=== PATIENT | male | born 1945 | race Caucasian/White ===

== ENCOUNTER → 2024-03-23 14:38 | Outpatient (REF) | payer MEDICARE, OTHER, SELFPAY | LOC: HWRCS 14:38 | PROVIDERS: ATTENDING PHYSICIAN Internal Medicine Cardiovascular Disease; FAMILY PHYSICIAN Internal Medicine | DX: I42.9 Cardiomyopathy, unspecified (principal) | CPT/HCPCS: 93306 ==

== ENCOUNTER 2024-08-21 09:47 | Day surgery (SDC) | payer MEDICARE, OTHER, SELFPAY ==
--- NOTE | 2024-08-21 10:40 | ITS.CL.CARDI ---
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
Cardioversion
Procedure Report:
Date of Procedure: 08/21/24
Procedure: Cardioversion
Indication: Symptomatic atrial fibrillation
Performing Physician: Nito Jordan MD
Technique: The patient was brought to the holding area. Signed informed consent was obtained. A time out was called and performed. The patient was anesthetized by the anesthesia service. Anticoagulation status was reviewed and appropriate. R2 pads
were placed anteriorly and posteriorly. A 200 J synchronized biphasic shock restored normal sinus rhythm without significant bradycardia. There were no complications.
Conclusion: Uncomplicated cardioversion from atrial fibrillation to sinus rhythm.
Recommendation: Routine post cardioversion care. 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
== END 2024-08-21 10:15 | disposition home or self-care (01) ==
LOC: CATH 09:47
PROVIDERS: ATTENDING PHYSICIAN Internal Medicine Cardiovascular Disease; FAMILY PHYSICIAN Internal Medicine; OTHER PHYSICIAN Internal Medicine Cardiovascular Disease
DX: I48.0 Paroxysmal atrial fibrillation (principal); I42.9 Cardiomyopathy, unspecified; R55 Syncope and collapse; I47.20 Ventricular tachycardia, unspecified; Z79.01 Long term (current) use of anticoagulants; G47.33 Obstructive sleep apnea (adult) (pediatric)
CPT/HCPCS: 92960; 93005

== ENCOUNTER → 2025-01-01 07:03 | Outpatient (REF) | payer MEDICARE, OTHER, SELFPAY | LOC: MRI 07:03 | PROVIDERS: ATTENDING PHYSICIAN Pain Medicine Interventional Pain Medicine; FAMILY PHYSICIAN Internal Medicine | DX: M54.12 Radiculopathy, cervical region (principal) | CPT/HCPCS: 72141 ==

== ENCOUNTER → 2025-01-21 09:51 | Outpatient (REF) | payer MEDICARE, OTHER, SELFPAY ==
[2025-01-21 10:17] LABS: Hematocrit 35.2 % (39.0-52.0); Hemoglobin 12.4 g/dL (13.0-18.0); Mean Corp Hgb Conc. 35.2 g/dL (33.0-37.0); Mean Corpuscular Volume 102.9 fL (80.0-94.0); Nucleated Red Blood Cells % 0 % (-); Platelet Count 179 10^3/uL (130-400); Red Cell Dist. Width 14.3 % (11.5-14.5)
[2025-01-21 10:37] LABS: INR 1.09; PT 14.6 Sec (11.4-14.6)
[2025-01-21 12:38] LABS: ALT (SGPT) 15 U/L (0-50); AST (SGOT) 17 U/L (17-59); Albumin 4.2 g/dl (3.5-5.0); Alkaline Phosphatase 44 U/L (38-126); Blood Urea Nitrogen 14 mg/dl (9-20); Calcium 9.2 mg/dl (8.4-10.2); Carbon Dioxide 27 mmol/L (22-30); Chloride 107 mmol/L (98-107); Glucose 108 mg/dl (70-99); Magnesium 2.0 mg/dl (1.6-2.3); Potassium 4.5 mmol/L (3.5-5.1); Sodium 139 mmol/L (135-145); Total Protein 6.4 g/dl (6.3-8.2); eGFR > 60.00
== END ==
LOC: SDSPAT 09:51
PROVIDERS: ATTENDING PHYSICIAN Internal Medicine Cardiovascular Disease; FAMILY PHYSICIAN Internal Medicine
DX: I48.0 Paroxysmal atrial fibrillation (principal)
CPT/HCPCS: 36415; 75572; 80053; 83735; 85025; 85610; 86850; 86900; 86901; 93005; Q9967

== ENCOUNTER 2025-02-11 06:56 | Day surgery (SDC) | payer MEDICARE, OTHER, SELFPAY | END 2025-02-11 08:40 | disposition home or self-care (01) | LOC: CATH 06:56 | PROVIDERS: ATTENDING PHYSICIAN Internal Medicine Cardiovascular Disease; FAMILY PHYSICIAN Internal Medicine | DX: I48.0 Paroxysmal atrial fibrillation (principal); I08.3 Combined rheumatic disorders of mitral, aortic and tricuspid valves; I08.8 Other rheumatic multiple valve diseases; I47.20 Ventricular tachycardia, unspecified; R55 Syncope and collapse; I42.9 Cardiomyopathy, unspecified; Z79.01 Long term (current) use of anticoagulants | CPT/HCPCS: 93312; 93320; 93325 ==

== ENCOUNTER 2025-02-16 07:54 | Day surgery (SDC) | payer MEDICARE, OTHER, SELFPAY ==
[2025-01-21 10:29] VITALS: BMI 29.1
[2025-02-16] VITALS (12 sets, daily range): BP systolic 105–132; BP diastolic 65–90
[2025-02-16] MEDS: NSS 500 IV (09:16)
--- NOTE | 2025-02-16 14:02 | ITS.CL.ABL ---
Communications Clerk - Ablation
Ablation
Procedure Report:
ELECTROPHYSIOLOGY ABLATION STUDY
DATE:: February 16, 2025�����������������������������REFERRING: Dr. Nito Jordan
INDICATION: Persistent supraventricular tachycardia in the form of atrial fibrillation.��As above
HISTORY: See H and P.��As above
ANTIARRHYTHMIC DRUG: Carvedilol
PRE-PROCEDURE DIANE: No intracardiac thrombus on intracardiac ultrasound
PRESENTING RHYTHM: Atrial fibrillation
'TIME-OUT':��called and confirmed.
SEDATION/ANESTHESIA:��provided via the anesthesia department using general anesthesia (LMA).
INTRAVENOUS/ARTERIAL ACCESS:
Right femoral venous - 8Fr
Left femoral venous - 8 Fr, 6 Fr
[id number] suture bilaterally
Ultrasound guidance for bilateral femoral vein access was utilized by me to obtain access with demonstration of normal anatomy
CHADS-VASC Score:
HAS-Bled Score
PROCEDURE:
1.��A decapolar CS catheter was placed within the CS for mapping and pacing.��This was also used as the reference catheter for the 3-D map.
2. The intracardiac ultrasound catheter was positioned in the RA to identify the FO for targeting of transseptal puncture, assist��in identification of the pulmonary vein ostia, monitoring pre and post ablation pulmonary vein flow velocities,
monitoring for 'bubble' formation during RF application as a sign of thermal injury,��and to monitor for pericardial effusion during mapping and ablation procedure.���Left atrial size, LV ejection fraction, and pulmonary vein flows were monitored
pre and post ablation procedure. The other valves were inspected and found to be free of significant regurgitation or stenosis. Patient was noted to have mild mitral digitation under anesthesia. Recent transesophageal echo demonstrating moderate
mitral regurgitation when in atrial fibrillation
3.��Half of the calculated heparin bolus was administered prior to the first transeptal puncture.��Transseptal puncture was performed to diagnose RA and LA pressure so that safety of LA mapping and ablation could be further assessed, and to access
the left atrium and pulmonary veins for mapping and ablation.��This entailed advancing an 8 Fr SL-1 sheath with dilator into the superior vena cava and withdrawing both (monitoring intracardiac ultrasound, fluoroscopy and tip pressure) with the tip
oriented toward the atrial septum.��The fossa ovalis was engaged (indicated by sudden displacement of the sheath tip as well as tenting of the fossa seen on intracardiac ultrasound).��Left atrial access required a pass with the Brockenbrough needle
extended.��Left atrial catheter position was confirmed by pressure monitoring (RA mean pressure 4 mm Hg and LA mean pressure 8 mm Hg in atrial fibrillation 18 in sinus rhythm with the patient receiving 1300 cc of fluid), LA saturation (99%),��as
well as fluoroscopy.��The sheath was advanced over the dilator and positioned in the left atrium.��This procedure was repeated for the Agilis sheath.��The remainder of the calculated heparin bolus was administered and heparin was
infused to maintain ACT at 300 -350 seconds throughout the case.
4.��RA pacing was performed via the proximal decapolar poles and LA pacing was performed via the distal decapolar poles.
5. A quadrapolar catheter was first positioned at the His position for His Bundle recording which was tagged via the 3-D Navex sytem, and then passed to the RVA for RV pacing and recording.
6. The Penta spline and grid catheter were placed in each of the LIPV, LSPV, RSPV and the RIPV.��
7.��Next, a 3-D map was created using Navex.���A 3-D reconstructed CT image was compared to the 3-D Navex map to assist in anatomic interpretation, mapping and ablation.��The CT image and the NavX image were fused.
8. A total of 52 lesions were given to the pulmonary veins and posterior wall left atrium. All of in basket poses were given to the left common ostium with care taken to address the distal emmett of the left common ostium in all of pose as well as
basket pose in the common ostium in a segmental fashion. The right pulmonary veins were addressed individually. This led to entrance block in all 4 pulmonary veins. Atrial fibrillation persisted and in flower pose roof posterior wall and floor of
the left atrium rendered the posterior wall of the left atrium electrically silent. Atrial fibrillation persisted beyond this lesion set the patient was converted to sinus rhythm with 1 200 J synchronized biphasic shock with entrance and exit block
confirmed in all 4 pulmonary veins and the posterior wall roof and floor of the left atrium. EP study including burst pacing, atrial extrastimuli from both atria and pacing at the Wenckebach cycle length did not demonstrate any other inducible
tachyarrhythmias.
9. Normal sinus node AV node function noted.
TOTAL FLOURO TIME: 14.4 minutes to 65 mGy
TOTAL RF DURATION: 0 minutes
REVERSAL OF HEPARIN: 35 mg of protamine, slow IV administration
COMPLICATIONS:
None
Intracardiac US shows no pericardial effusion post ablation.
SUMMARY:��
Complex left atrial mapping and ablation.
Isolation of all 4 pulmonary veins in the left atrial posterior wall roof and floor of the left atrium as above.
RECOMMENDATIONS:
1. Ambulate in 4 hours
2. Resume anticoagulation
3.� Continue Coreg
4.� Repeat echocardiogram in 2 to 3 months to follow the patient's mitral digitation left atrial size and ejection fraction. Consider same-day discharge
Copy to: Dr. Nito Jordan
--- NOTE | 2025-02-16 15:41 | W.PN.UPDATE ---
Update Note
Progress Note Update
79 yo WM s/p PVI (Same day). He denies cp, sob, agus diet, b/l groins c/d/i no HT, EKG SR 1deg AVB with occ PAC's. He will resume Eliquis tonight. Activity restrictions reviewed. He will f/u Dr. Jordan in 2 mo. He is for d/c home after 430p if
groins stable and voiding.
== END 2025-02-16 16:29 | disposition home or self-care (01) ==
LOC: CATH 07:54
PROVIDERS: ATTENDING PHYSICIAN Internal Medicine Cardiovascular Disease; FAMILY PHYSICIAN Internal Medicine; OTHER PHYSICIAN Internal Medicine Cardiovascular Disease
DX: I48.19 Other persistent atrial fibrillation (principal); I47.20 Ventricular tachycardia, unspecified; Z79.01 Long term (current) use of anticoagulants; I10 Essential (primary) hypertension; I42.8 Other cardiomyopathies; M48.00 Spinal stenosis, site unspecified; G47.33 Obstructive sleep apnea (adult) (pediatric); Z79.899 Other long term (current) drug therapy; Z87.891 Personal history of nicotine dependence; I47.10 Supraventricular tachycardia, unspecified; I44.0 Atrioventricular block, first degree; I49.1 Atrial premature depolarization
CPT/HCPCS: C1730; C1769; C1892; C1759; 85347; 86900; 86901; 93005; 93656; 93657; C1732; C1733; C1766; C1894

== ENCOUNTER → 2025-04-21 10:47 | Outpatient (REF) | payer MEDICARE, OTHER, SELFPAY | LOC: HWRAD 10:47 | PROVIDERS: ATTENDING PHYSICIAN Internal Medicine; FAMILY PHYSICIAN Internal Medicine | DX: R91.8 Other nonspecific abnormal finding of lung field (principal) | CPT/HCPCS: 71250 ==